=== PATIENT | male | born 1950 | race African-American/Black ===

== ENCOUNTER 2018-12-24 07:21 | Emergency (ER) | payer MEDICARE, OTHER ==
[~2018-12-24] VITALS: Ht 180.3 cm; Wt 104.3 kg
--- NOTE | 2018-12-24 07:54 | PHYS DOC ---
Past Medical History Past Medical History: Diabetes-Type II (pre-diabetes), Kidney Stone Past Surgical History: Other Additional Past Surgical Histo: liver abscess Additional Information: non smoker Alcohol Use: None Drug Use: None Adult General Chief Complaint Chief Complaint: FLANK PAIN HPI HPI Patient is a 68 y/o male with a history of pre-diabetes, peripheral neuropathy, kidney stone and chronic back pain who presents to the ED with sharp right sided pain with vomiting today. He states the pain has been fluctuating with severity at a 10/10 at its worse. He states that taking Ibuprofen has not helped his pain and moving around it worse. Denies any radiation of pain to groin. Pt has a history of chronic back pain but states this does not feel the same. Denies any rash. Denies trauma. Denies loss of bowel/bladder. Review of Systems Review of Systems Constitutional: Denies fever or chills Eyes: Denies redness or eye pain HENT: Denies nasal congestion or sore throat Respiratory: Denies cough or shortness of breath Cardiovascular: Denies chest pain or palpitations GI:Reports right sided abdominal pain and vomiting : Denies dysuria or hematuria Musculoskeletal: Reports right sided back pain/flank pain; denies joint pain Integument: Denies rash or skin lesions Neurologic: Denies headache, focal weakness or sensory changes Complete systems were reviewed and found to be within normal limits, except as documented in this note. Current Medications Current Medications Current Medications Medications (Trade) Dose Ordered Sig/[place] Start Time Stop Time Status Last Admin Dose Admin Famotidine (Pepcid Vial) 20 mg 1X ONCE 12/24/18 08:00 12/24/18 08:01 DC 12/24/18 08:50 20 MG Ketorolac Tromethamine (Toradol 15mg Vial) 15 mg 1X ONCE 12/24/18 08:00 12/24/18 08:01 DC 12/24/18 08:49 15 MG Metoclopramide HCl (Reglan Vial) 10 mg 1X ONCE 12/24/18 08:00 12/24/18 08:01 DC 12/24/18 08:47 10 MG Sodium Chloride 1,000 ml @ 1,000 mls/hr 1X ONCE 12/24/18 08:00 12/24/18 08:59 DC 12/24/18 08:47 1,000 MLS/HR Tamsulosin HCl (Flomax) 0.4 mg 1X ONCE 12/24/18 10:15 12/24/18 10:16 DC 12/24/18 10:24 0.4 MG Allergies Allergies Allergies Coded Allergies Type Severity Reaction Last Updated Verified No Known Drug Allergies 12/24/18 No Physical Exam Physical Exam Constitutional: Well developed, well nourished, uncomfortable, non-toxic appearance HENT: Normocephalic, atraumatic, oropharynx moist Cardiovascular: Heart rate normal, regular rhythm Lungs & Thorax: Bilateral breath sounds clear to auscultation, no wheezing Abdomen: Soft, RUQ pain on palpation, old surgical scar present Skin: Warm, dry, no erythema, no rash Back: No midline tenderness, right CVA tenderness Extremities: No tenderness, ROM intact, no edema Neurologic: Alert and oriented X 3, no focal deficits noted Psychologic: Affect normal, judgement normal Current Patient Data Vital Signs Vital Signs Date Time Temp Pulse Resp B/P (MAP) Pulse Ox O2 Delivery O2 Flow Rate FiO2 12/24/18 07:31 97.7 57 18 156/75 (102) 99 Room Air 97.7 Lab Values Laboratory Tests Test 12/24/18 08:38 12/24/18 10:26 White Blood Count 9.7 x10^3/uL (4.0-11.0) Red Blood Count 4.21 x10^6/uL (4.30-5.70) L Hemoglobin 13.2 g/dL (13.0-17.5) Hematocrit 39.3 % (39.0-53.0) Mean Corpuscular Volume 93 fL (79-100) Mean Corpuscular Hemoglobin 31 pg (25-35) Mean Corpuscular Hemoglobin Concent 34 g/dL (31-37) Red Cell Distribution Width 14.4 % (11.5-14.5) Platelet Count 224 x10^3/uL (140-400) Neutrophils (%) (Auto) 83 % (31-73) H Lymphocytes (%) (Auto) 10 % (24-48) L Monocytes (%) (Auto) 6 % (0-9) Eosinophils (%) (Auto) 1 % (0-3) Basophils (%) (Auto) 0 % (0-3) Neutrophils # (Auto) 8.0 x10^3/uL (1.8-7.7) H Lymphocytes # (Auto) 0.9 x10^3/uL (1.0-4.8) L Monocytes # (Auto) 0.6 x10^3/uL (0.0-1.1) Eosinophils # (Auto) 0.1 x10^3/uL (0.0-0.7) Basophils # (Auto) 0.0 x10^3/uL (0.0-0.2) Sodium Level 141 mmol/L (136-145) Potassium Level 4.1 mmol/L (3.5-5.1) Chloride Level 104 mmol/L (98-107) Carbon Dioxide Level 30 mmol/L (21-32) Anion Gap 7 (6-14) Blood Urea Nitrogen 16 mg/dL (8-26) Creatinine 1.5 mg/dL (0.7-1.3) H Estimated GFR (Cockcroft-Gault) 56.1 BUN/Creatinine Ratio 11 (6-20) Glucose Level 131 mg/dL (70-99) H Calcium Level 9.1 mg/dL (8.5-10.1) Magnesium Level 2.0 mg/dL (1.8-2.4) Total Bilirubin 0.7 mg/dL (0.2-1.0) Aspartate Amino Transferase (AST) 24 U/L (15-37) Alanine Aminotransferase (ALT) 18 U/L (16-63) Alkaline Phosphatase 105 U/L (46-116) Total Protein 7.8 g/dL (6.4-8.2) Albumin 3.1 g/dL (3.4-5.0) L Albumin/Globulin Ratio 0.7 (1.0-1.7) L Lipase 55 U/L (73-393) L Urine Collection Type Void Urine Color Yellow Urine Clarity Clear Urine pH 5.0 Urine Specific [place] 1.015 Urine Protein Negative mg/dL (NEG-TRACE) Urine Glucose (UA) Negative mg/dL (NEG) Urine Ketones (Stick) Negative mg/dL (NEG) Urine Blood Moderate (NEG) Urine Nitrite Negative (NEG) Urine Bilirubin Negative (NEG) Urine Urobilinogen Dipstick 0.2 mg/dL (0.2 mg/dL) Urine Leukocyte Esterase Small (NEG) Urine RBC 6-10 /HPF (0-2) Urine WBC 11-20 /HPF (0-4) Urine Squamous Epithelial Cells Mod /LPF Urine Bacteria Few /HPF (0-FEW) Urine Hyaline Casts Occasional /HPF Urine Mucus Mod /LPF Laboratory Tests 12/24/18 08:38 Laboratory Tests 12/24/18 08:38 EKG EKG [] Radiology/Procedures Radiology/Procedures [] Course & Med Decision Making Course & Med Decision Making Pt is a 68 y/o male with a history of kidney stones, peripheral neuropathy, and pre-diabetes who presents with right sided abdominal/flank pain. Pain/nausea addressed. IVF hydration given. Labs obtained and posted to chart. Creat elevated. (no prior level for comparison) UA with hematuria and possible infection vs contamination. Empiric antibiotic given. CT abd/pelvis showed 2 small renal calculi at the UVJ: between 1-2 mm and 2-3 mm. Flomax initiated. WBC WNL. Patient afebrile. Patient appears safe for discharge and outpatient therapy. Patient stable for discharge with outpatient follow-up with PCP/Urology. Discussed findings and plan with patient and family, who acknowledge keila shelby and agreement. Khadra Disclaimer Dragon Disclaimer This electronic medical record was generated, in whole or in part, using a voice recognition dictation system. Departure Departure Impression: Primary Impression: Kidney stone Additional Impressions: Renal insufficiency Urinary tract infection Disposition: 01 HOME, SELF-CARE Condition: IMPROVED Patient Instructions: Acute Kidney Injury, Diet for Kidney Stones, Kidney Stones, [place], Urinary Tract Infection, Ncze-hr-Hloh Scripts Cephalexin (KEFLEX) 500 Mg Capsule 500 MG PO TID for 7 Days, #21 CAP Prov: KORIN CORONEL DO 12/24/18 Ondansetron (ONDANSETRON ODT) 4 Mg Tab.rapdis 1 TAB PO PRN Q6-8HRS PRN for NAUSEA, #16 TAB Prov: KORIN CORONEL DO 12/24/18 Hydrocodone/Apap 5-325 (NORCO 5-325 TABLET) 1 Each Tablet 0.5-1 TAB PO PRN Q6HRS PRN for PAIN, #10 TAB 0 Refills Prov: KORIN CORONEL DO 12/24/18 Tamsulosin Hcl (FLOMAX) 0.4 Mg Cap.er.24h 1 CAP PO DAILY for 5 Days, #5 CAP Prov: KORIN CORONEL DO 12/24/18 Problem Qualifiers Additional Impressions: Urinary tract infection Urinary tract infection type: site unspecified Hematuria presence: with hematuria Qualified Codes: N39.0 - Urinary tract infection, site not specified; R31.9 - Hematuria, unspecified KORIN CORONEL DO Dec 24, 2018 07:54
[2018-12-24] MEDS ORDERED: IV NORMAL SALINE 1000ML BAG 1,000 ML IV ONE (08:00)
[2018-12-24] MEDS ORDERED: METOCLOPRAMIDE HCL 10 MG/2 ML VIAL. IVP ONE (08:00)
[2018-12-24] MEDS ORDERED: KETOROLAC 15 MG/ML VIAL. IVP ONE (08:00)
[2018-12-24] MEDS ORDERED: FAMOTIDINE 20 MG/2 ML VIAL IVP ONE (08:00)
[2018-12-24 08:49] LABS: BASO % 0 % (0-3); EOS # 0.1 x10^3/uL (0.0-0.7); EOS % 1 % (0-3); HEMATOCRIT 39.3 % (39.0-53.0); HEMOGLOBIN 13.2 g/dL (13.0-17.5); LYMPH # 0.9 x10^3/uL (1.0-4.8); LYMPH % 10 % (24-48); MEAN CORPUSCULAR HEMOGLOBIN 31 pg (25-35); MEAN CORPUSCULAR HGB CONC 34 g/dL (31-37); MEAN CORPUSCULAR VOLUME 93 fL (79-100); MONO # 0.6 x10^3/uL (0.0-1.1); MONO % 6 % (0-9); NEUT % 83 % (31-73); PLATELET COUNT 224 x10^3/uL (140-400); RED BLOOD COUNT 4.21 x10^6/uL (4.30-5.70); RED CELL DISTRIBUTION WIDTH 14.4 % (11.5-14.5); WHITE BLOOD COUNT 9.7 x10^3/uL (4.0-11.0)
[2018-12-24 09:02] LABS: ALBUMIN 3.1 g/dL (3.4-5.0); ALBUMIN/GLOBULIN RATIO 0.7 (1.0-1.7); CALCIUM 9.1 mg/dL (8.5-10.1); GFR 56.1; POTASSIUM 4.1 mmol/L (3.5-5.1); TOTAL BILIRUBIN 0.7 mg/dL (0.2-1.0); TOTAL PROTEIN 7.8 g/dL (6.4-8.2)
[2018-12-24 09:06] LABS: CREATININE 1.5 mg/dL (0.7-1.3)
--- NOTE | 2018-12-24 10:02 | RAD ---
Axial CT images of the abdomen and pelvis with coronal and sagittal reformats were performed without contrast per renal colic protocol. Exposure: One or more of the following individualized dose reduction techniques were utilized for this examination: 1. Automated exposure control 2. Adjustment of the mA and/or kV according to patient size 3. Use of iterative reconstruction technique Indication: Right flank pain Comparison: None. Findings: There is a 1 to 2 mm distal right ureteral calculus just above the UVJ. Additionally there is a 2 to 3 mm calculus seen at the UVJ. There is mild proximal hydronephrosis and hydroureter. There is perinephric fat stranding. There is a nonobstructive collecting system calculus in the midpole kidneys bilaterally. The appendix is visualized and is unremarkable. There is scarring in the right lung base. The remainder of the non contrasted abdomen and pelvis is normal in appearance, although evaluation is limited on an unenhanced exam. Impression: 1. 2 small calculi one at the ureterovesicular junction and one just above the ureterovesicular junction. There is proximal hydronephrosis and hydroureter. Electronically signed by: Davian Otto MD (12/24/2018 9:59 AM) [id number]
[2018-12-24] MEDS ORDERED: TAMSULOSIN 0.4 MG CAP.ER.24H. PO ONE (10:15)
[2018-12-24] MEDS ORDERED: TAMS0.4C97 PO (10:25)
[2018-12-24] MEDS ORDERED: ONDA4TAB12 PO (10:25)
[2018-12-24] MEDS ORDERED: HYDR-3164 PO (10:25)
[2018-12-24 10:34] LABS: BILIRUBIN,URINE NEGATIVE (NEG); CLARITY,URINE CLEAR; COLOR,URINE YELLOW; NITRITE,URINE NEGATIVE (NEG); PROTEIN,URINE NEGATIVE (NEG-TRACE); UROBILINOGEN,URINE 0.2 mg/dL (0.2 mg/dL)
[2018-12-24 10:49] LABS: SQUAMOUS EPITHELIAL CELL,UR MOD /LPF
[2018-12-24 10:50] LABS: BACTERIA,URINE FEW /HPF (0-FEW); HYALINE CASTS, URINE OCCASIONAL /HPF
[2018-12-24] MEDS ORDERED: cefTRIAXone IV Push 1 GM VIAL. IVP ONE (11:00)
[2018-12-24] MEDS ORDERED: CEPH-264 PO (11:03)
[2018-12-24 11:14] VITALS: BP 147/72
== END 2018-12-24 11:20 | disposition home or self-care (01) ==
LOC: ER 07:21
DX: N39.0 Urinary tract infection, site not specified (principal); R31.9 Hematuria, unspecified; N13.2 Hydronephrosis with renal and ureteral calculous obstruction; N28.9 Disorder of kidney and ureter, unspecified
CPT/HCPCS: 36415; 74176; 80053; 81001; 83690; 83735; 85025; 87086; 96361; 96374; 96375; 99285; J0696; J1885; J2765; J3490; J7030